=== PATIENT | male | born 1970 | race Caucasian/White ===

== ENCOUNTER 2022-01-30 16:08 | Outpatient (CLI) | payer OTHER, SELFPAY ==
--- NOTE | ~2022-01-30 | CT_ITS ---
EXAMINATION: CT abdomen pelvis wo/w con DATE: 01/30/2022 17:10 INDICATION: Gross hematuria. TECHNIQUE: Computed tomography (CT) of the abdomen and pelvis was performed without and with 130 cc O mnipaque 350 intravenous contrast. The dose-length product was 2060.18 mGy-cm. Automated exposure con trol and iterative reconstruction technique were employed. COMPARISON: CT dated 04/15/2007 FINDINGS: Lung bases are unremarkable. Heart size normal. No significant pleural or pericardial effus ion.There are mildly increased number of mesenteric lymph nodes with hazy stranding of the mesenteric fat. Nonobstructive bowel gas pattern. No retroperitoneal lymphadenopathy. No renal stones or hydron ephrosis. Fatty infiltration of the liver. There are cholecystectomy clips. The spleen, pancreas, adrenal gland s and kidneys are unremarkable. There is small accessory splenule medial to the spleen. Ureters are n ormal in course and caliber mildly enlarged prostate gland. Mild lumbar spondylosis. No acute osseous abnormality. IMPRESSION: 1. No findings to explain hematuria. 2: Mild mesenteric lymphadenopathy with stranding of the adjacent mesenteric fat, which can be seen w ith panniculitis. Reviewed, dictated and finalized at location B. IMPRESSION: 1. No findings to explain hematuria. 2: Mild mesenteric lymphadenopathy with stranding of the adjacent mesenteric fa t, which can be seen with panniculitis.
== END 2022-01-30 16:09 | disposition home or self-care (01) ==
PROVIDERS: PCP Family Medicine; Visit Provider Family Medicine
DX: R31.0 Gross hematuria (principal); M47.816 Spondylosis without myelopathy or radiculopathy, lumbar region; R59.1 Generalized enlarged lymph nodes
CPT/HCPCS: 74178; Q9967

== ENCOUNTER 2025-03-12 02:20 | Day surgery (SDC) | payer OTHER, SELFPAY ==
[2025-03-03 15:32] VITALS: BMI 32.7
--- OUTSIDE RECORDS SUMMARY | 2025-03-12 02:24 | XMS_ITS | Clinical Summary ---
Author Organization [facility] Address [address] [place] [address] Care Team Providers Care Delivery Merchandiser Name Role Phone Yoav Ospina MD Primary Care Provider [phone] Allergies No known active allergies Medications omeprazole (PriLOSEC) 20 mg capsule Take 20 mg by mouth daily Active methylPREDNISol one (Medrol, Martín,) 4 mg DosepackIndicat ions:Right carpal tunnel syndrome Take as directed on package 1 packet 04/10/2021 Active Active Problems Problem Noted Date Diagnosed Date Right carpal tunnel syndrome 01/20/2020 Surgical History Surgery Date Site/Laterality Comments CARPAL TUNNEL RELEASE 03/28/2021 Right rt CTR Social History Tobacco Use Types Packs/Day Years Used Date Smoking Tobacco: Every Day Smokeless Tobacco: Current Alcohol Use Standard Drinks/Week Comments Yes 0 (1 standard drink = 0.6 oz pur e alcohol) social Personal Safety Answer Date Recorded Getting School Help Needed Not on file 01/17 Sex and Gender Information Value Date Recorded Sex Assigned at Not on file 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 Gender Identity Not on file Sexual Orientation Not on file Obstetrics History Last Filed Vital Signs Vital Sign Reading Time Taken Comments Blood Pressure 118/86 03/28/2021 6:15 AM CDT Pulse 66 03/28/2021 6:15 AM CDT Temperature 36.8 C (98.2 F) 03/28/2021 6:15 AM CDT Respiratory Rate - - Oxygen Saturation 96% 03/28/2021 6:15 AM CDT Inhaled Oxygen Concentration - - Weight 92.6 kg (204 lb 3.2 oz) 03/28/2021 6:15 A M CDT Height 170.2 cm (5' 7 ) 03/28/2021 6:15 AM CDT Body Mass Index 31.98 03/28/2021 6:15 AM CDT Plan of Treatment Not on file Insurance [employer] OPEN ACCESS [employer] ACC[employer] Care Teams Delivery Merchandiser Relationship Specialty Start Date End Date Yoav Ospina MD [address] [place] [address] [place] [id number] PCP - General Family Medicine 12/25/19
--- OUTSIDE RECORDS SUMMARY | 2025-03-12 02:24 | XMS_ITS | Referral Summary ---
Author Organization [facility] Address [address] [place] [address] Care Team Providers Care Leather Softener Name Role Phone Yoav Ospina MD Primary Care Provider [phone] Allergies No known active allergies Medications omeprazole (PriLOSEC) 20 mg capsule Take 20 mg by mouth daily Active methylPREDNISol one (Medrol, Martín,) 4 mg DosepackIndicat ions:Right carpal tunnel syndrome Take as directed on package 1 packet 04/10/2021 Active Active Problems Problem Noted Date Diagnosed Date Right carpal tunnel syndrome 01/20/2020 Social History Tobacco Use Types Packs/Day Years [...] on file 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
[2025-03-12 10:49] VITALS: BP 128/88; PULSE 71; RESP 18; TEMP 36.8; O2SAT 97; BMI 31.2
[2025-03-12] MEDS: LACTATED RINGERS 1,000 ML 150 ML IV CONT (10:52)
--- NOTE | 2025-03-12 11:15 | WPDANESEPPF ---
Anes - Initial Pre Proc Eval Procedure: Operation Date: 03/12/25 13:00 Proposed Procedures p Screening Colonoscopy - Ousmane Marie MD Date/Time: 03/12/25 11:15 Surgeon: Ousmane Marie MD Pre Op Diagnosis: screening Patient Data Age: 54 Gender: M Height: 1.73 m Weight: 93.3 kg Last Vital Signs Temp 98.3 F 03/12/25 10:49 Pulse 71 03/12/25 10:49 Resp 18 03/12/25 10:49 BP 128/88 03/12/25 10:49 Pulse Ox 97 03/12/25 10:49 O2 Del Method Room Air 03/12/25 10:49 Allergies Allergy/AdvReac Type Severity Reaction Status Date / Time No Known Allergies Allergy Mild Verified 03/12/25 10:48 Home Medications ?Medication ?Instructions ?Recorded ?Confirmed ?Type omeprazole 20 mg capsule,delayed 20 mg PO DAILY #30 caps 03/25/23 03/12/25 Rx release lisinopril 20 mg tablet 20 mg PO DAILY #90 tabs 09/28/24 03/12/25 Rx Patient hx anesthesia problems: none Family hx anesthesia problems: none Results Review: All pre-operative results and documents have been reviewed as part of the pre-operative evaluation. [facility] Past Medical History Medical History Allergic rhinitis GERD (gastroesophageal reflux disease) Hypertension Surgical History Surgical History History of cholecystectomy History of local excision of skin lesion fulgurtion of condylomata 12/1998 Family History Family History Father Acute myocardial infarction Heart disease Hypertension Mother Acute myocardial infarction Heart disease Hypertension Grandparent Diabetes mellitus Social History Social History Smoking packs per day: 0.5 Smoking cigarettes per day: 10.0 Years smoked: 35 Smoking pack-years: 17.50 Smoking status: Current every day smoker Tobacco type: cigarettes Alcohol intake: current Drinks per week: 2 Alcohol use details: Occasionally Substance use: never Substance use type: does not use Do You Feel Safe in your Home?: Yes Lack of Transportation: No Lack of Food: Never True Current Housing: I Have Housing Concerned About Future Housing: No Difficulty Paying Gas/Electric Bills: No Difficulty Paying for Meds: No Currently Unemployed: No Education: High School Diploma/GED Difficulty w/ Childcare or Family Care: No Living arrangements: with family Occupation/Education: occupation Gender identity (if verbalized by the patient): Male Sexual Orientation (if Verbalized by the Patient): Straight or Heterosexual Spiritual care concerns: No Anes - Eval Final PreProcedure Day of Procedure 03/12/25 11:15 Patient weight: obese Heart: regular rate and rhythm Lungs: clear to auscultation Airway: Mallampati scale class II Neurological: alert and oriented Last oral intake: >/= 8 hours ASA classification: III Emergent: no Anesthetic plan: proceed Anesthesia type and monitoring: general GIVS and standard monitoring Results Review: All pre-operative results and documents have been reviewed as part of the pre-operative evaluation. Informed Consent: The patient's anesthetic plan and its attendant risks and benefits were discussed with the patient/family/POA. Questions were solicited and answers provided to the satisfaction of the patient/family/POA.
--- NOTE | 2025-03-12 11:22 | PM.HPGS ---
History of Present Illness History of Present Illness Consent: Risks, benefits, and alternatives have been discussed and questions answered. Patient agrees to proceed with procedure. Chief complaint: screening Narrative: Chlee Pena is a 54 year old male here for first screening colonoscopy Review of Systems Review of Systems: All systems reviewed & are unremarkable except as noted in HPI and below PMFSH Past Medical History Medical History (Updated 03/12/25 @ 11:23 by Ousmane Marie MD) Colon cancer screening Hypertension GERD (gastroesophageal reflux disease) Allergic rhinitis Surgical History Surgical History History of local excision of skin lesion fulgurtion of condylomata 12/1998 History of cholecystectomy Family History Family History Father Acute myocardial infarction Heart disease Hypertension Mother Acute myocardial infarction Heart disease Hypertension Grandparent Diabetes mellitus Social History Social History Smoking packs per day: 0.5 Smoking cigarettes per day: 10.0 Years smoked: 35 Smoking pack-years: 17.50 Smoking status: Current every day smoker Tobacco type: cigarettes Alcohol intake: current Drinks per week: 2 Alcohol use details: Occasionally Substance use: never Substance use type: does not use Do You Feel Safe in your Home?: Yes Lack of Transportation: No Lack of Food: Never True Current Housing: I Have Housing Concerned About Future Housing: No Difficulty Paying Gas/Electric Bills: No Difficulty Paying for Meds: No Currently Unemployed: No Education: High School Diploma/GED Difficulty w/ Childcare or Family Care: No Living arrangements: with family Occupation/Education: occupation Gender identity (if verbalized by the patient): Male Sexual Orientation (if Verbalized by the Patient): Straight or Heterosexual Spiritual care concerns: No Meds Home Medications and Allergies Home Medications ?Medication ?Instructions ?Recorded ?Confirmed ?Type omeprazole 20 mg capsule,delayed 20 mg PO DAILY #30 caps 03/25/23 03/12/25 Rx release lisinopril 20 mg tablet 20 mg PO DAILY #90 tabs 09/28/24 03/12/25 Rx Allergies Allergy/AdvReac Type Severity Reaction Status Date / Time No Known Allergies Allergy Mild Verified 03/12/25 10:48 Vital Signs Vital Signs - 24 hr 03/12/25 10:49 Temperature 98.3 F Pulse Rate 71 Respiratory Rate 18 Blood Pressure 128/88 Pulse Oximetry 97 Oxygen Delivery Room Air Exam Const: General: comfortable and no acute distress HENMT: Face/Nose/Sinus: Normal nares present Eyes: General: appearance normal, both eyes and all related structures Neck: Neck: no JVD Resp: Auscultation: clear to auscultation bilaterally Cardio: Rate: regular rate Rhythm: regular rhythm GI: Inspection: non-distended GI Palp: Yes Soft to palpation Skin: General skin exam: normal color Neuro: General: gait normal Speech: normal speech Extrem: General: normal to inspection Psych: Mental Status: mental status grossly normal Assessment and Plan Assessment and plan (1) Colon cancer screening: Code(s): Z12.11 - Encounter for screening for malignant neoplasm of colon Status: Acute Assessment and Plan: colonoscopy
[2025-03-12 11:38] VITALS: BP 117/77; PULSE 80; RESP 18; O2SAT 97
[2025-03-12 11:48] VITALS: BP 106/74; PULSE 72; RESP 20; O2SAT 94
[2025-03-12 11:58] VITALS: BP 121/89; PULSE 74; RESP 22; O2SAT 99
== END 2025-03-12 12:10 | disposition home or self-care (01) ==
PROVIDERS: PCP Family Medicine; Referring Provider Physician Assistant; Visit Provider Internal Medicine Gastroenterology
PROC: 0DJD8ZZ Inspection of Lower Intestinal Tract, Via Natural or Artificial Opening Endoscopic (ICD-10-PCS; CPT 45378; principal; 2025-03-12 13:00)
DX: Z12.11 Encounter for screening for malignant neoplasm of colon (principal); D12.3 Benign neoplasm of transverse colon; K57.30 Diverticulosis of large intestine without perforation or abscess without bleeding; I10 Essential (primary) hypertension; K21.9 Gastro-esophageal reflux disease without esophagitis; F17.210 Nicotine dependence, cigarettes, uncomplicated; E66.9 Obesity, unspecified; Z68.31 Body mass index [BMI] 31.0-31.9, adult; Z98.890 Other specified postprocedural states; Z90.49 Acquired absence of other specified parts of digestive tract; Z82.49 Family history of ischemic heart disease and other diseases of the circulatory system
CPT/HCPCS: 45385; 88305; J2704; J7120

== ENCOUNTER 2025-10-13 01:39 | Day surgery (SDC) | payer OTHER, SELFPAY ==
[2025-10-12 13:09] VITALS: BMI 33.5
--- OUTSIDE RECORDS SUMMARY | 2025-10-13 01:42 | XMS_ITS | Clinical Summary ---
Author Organization [facility] Address [address] [place] [address] Care Team Providers Care Director Outcomes Name Role Phone Unavailable Primary Care Provider Unavailabl e Source Comments [facility],non-owned Affiliates and Associated Physician Practices is amultiple site organization consisting of ambulatory clinics and hospital sitesin [place], [place], [place] and [place]. This disclosure is being madepursuant to the Care Everywhere program and may not contain all information available regarding this patient. Last updated 18.[facility] Allergies No known active allergies Medications * Be aware that medications may not be up to date on this document. Alwaysverify current medications with the patient. 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 Gender Identity Not on file Sexual Orientation Not on file Last Filed Vital Signs Vital Sign Reading Time Taken Comments Blood Pressure 122/78 12/14/2018 10:03 AM QUILL CLEANING MACHINE OPERATOR Pulse 77 12/14/2018 10:03 AM QUILL CLEANING MACHINE OPERATOR Temperature 36.8 C (98.3 F) 12/14/2018 10:03 AM QUILL CLEANING MACHINE OPERATOR Respiratory Rate 15 12/14/2018 10:03 AM QUILL CLEANING MACHINE OPERATOR Oxygen Saturation 98% 12/14/2018 10:03 AM QUILL CLEANING MACHINE OPERATOR Inhaled Oxygen Concentration - - Weight 97.5 kg (215 lb) 12/14/2018 10:03 AM QUILL CLEANING MACHINE OPERATOR Height 172.7 cm (5' 8) 12/14/2018 10:03 AM QUILL CLEANING MACHINE OPERATOR Body Mass Index 32.69 12/14/2018 10:03 AM QUILL CLEANING MACHINE OPERATOR Plan of Treatment Health Maintenance Due Date Last Done Comments COLOGUARD (AGES 45-75) - COL ON CA SCREENING 1972 COLON MONITORING 1972 COLONOSCOPY - COLON CA SCREENING 1972 CT COLONOGRAPHY - COLON CA SCREENING 1972 Colorectal Cancer Screening 1972 FIT - COLON CA SCREENING 1972 FLEX SIG - COLON CA SCREENING 1972 LIPID TESTING 1972 HIV SCREENING 1987 HEPATITIS C SCREENING 07/28/1990 DTAP/TDAP/TD VACCINES (1 - Tdap) 1991 HEPATITIS B VACCINE (1 of 3 - 19+ 3-dose series) 1991 PNEUMOCOCCAL VACCINE 50+ (1 of 2 - PCV) 1991 SCREENING FOR DIABETES 12/14/2018 ZOSTER VACCINE (1 of 2) 2022 DEPRESSION SCREENING 11/18/2024 COVID-19 VACCINE (1 - 2024-2 6 season) 2025 INFLUENZA VACCINE (#1) 2025 HIB VACCINE Aged Out No longer eligi ble based on patient's age to complete this topic HPV VACCINE Aged Out No longer eligi ble based on patient's age to complete this topic MENINGOCOCCAL (Group B) VACC INE SHARED DECISION-MAKING Aged Out No longer eligibl e based on patient's age to complete this topic MENINGOCOCCAL GROUPS A/C/Y/W VACCINE Aged Out No longer eligible b ased on patient's age to complete this topic Insurance [facility] SELF PAY NO INSURANCE Member Subscriber Plan / Payer (Ef fective for All Dates) Name:Bk Cantor Member ID:Not on file Relation to Subscriber:Not on file Name:BK CANTOR Subscriber ID:Not on file (Home) Address: [address] [place] [address] [place] [address] Payer ID:Not on file Group ID:Not on file Type:Self Pay Address: [facility]
--- OUTSIDE RECORDS SUMMARY | 2025-10-13 01:42 | XMS_ITS | Clinical Summary ---
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
--- OUTSIDE RECORDS SUMMARY | 2025-10-13 01:42 | XMS_ITS ---
Author Organization Unknown ENCOUNTERS Encounter Performer Location Date Diagnosis Diagnosis Status Outpatient [address] [address] [id number] COLT *Note: Encounters from your own facility or health system may be excluded. Allergies, Adverse Reactions, Alerts Allergen Type Severity Identification Date Medications Name Date Quantity Days Supplied GPI Number
[2025-10-13 08:24] VITALS: BP 121/73; PULSE 77; RESP 18; TEMP 36.4; O2SAT 97
[2025-10-13] MEDS: LACTATED RINGERS 1,000 ML 150 ML IV CONT (08:31)
--- NOTE | 2025-10-13 08:47 | WPDANESEPPF ---
Anes - Initial Pre Proc Eval Procedure: Operation Date: 10/13/25 09:30 Proposed Procedures p Esophagogastroduodenoscopy - Ousmane Marie MD Date/Time: 10/13/25 08:47 Surgeon: Ousmane Marie MD Pre Op Diagnosis: Dysphagia, unspecified Patient Data Age: 55 Gender: M Height: 1.73 m Weight: 95.9 kg Last Vital Signs Temp 36.4 C L 10/13/25 08:24 Pulse 77 10/13/25 08:24 Resp 18 10/13/25 08:24 BP 121/73 10/13/25 08:24 Pulse Ox 97 10/13/25 08:24 O2 Del Method Room Air 10/13/25 08:24 Allergies Allergy/AdvReac Type Severity Reaction Status Date / Time No Known Allergies Allergy Mild Verified 10/13/25 08:22 Home Medications ?Medication ?Instructions ?Recorded ?Confirmed ?Type omeprazole 20 mg capsule,delayed 20 mg PO DAILY #30 caps 03/25/23 10/13/25 Rx release lisinopril 20 mg tablet 20 mg PO DAILY #90 tabs 10/01/25 10/13/25 Rx Patient hx anesthesia problems: none Family hx anesthesia problems: none Results Review: All pre-operative results and documents have been reviewed as part of the pre-operative evaluation. [facility] Past Medical History Medical History Personal history of adenomatous and serrated colon polyps Colon cancer screening Hypertension GERD (gastroesophageal reflux disease) Allergic rhinitis Surgical History Surgical History History of local excision of skin lesion fulgurtion of condylomata 12/1998 History of cholecystectomy Family History Family History Father Acute myocardial infarction Heart disease Hypertension Mother Acute myocardial infarction Heart disease Hypertension Grandparent Diabetes mellitus Social History Social History (Updated 10/01/25 @ 16:08 by Alpa Braga MA) Smoking packs per day: 1.5 Smoking cigarettes per day: 30.0 Years smoked: 35 Smoking pack-years: 52.50 Smoking status: Heavy tobacco smoker Tobacco type: cigarettes Alcohol intake: never Alcohol use details: About 1 mixed drink once every 2 months Substance use: never Substance use type: does not use Do You Feel Safe in your Home?: Yes Lack of Transportation: No Lack of Food: Never True Current Housing: I Have Housing Concerned About Future Housing: No Difficulty Paying Gas/Electric Bills: No Difficulty Paying for Meds: No Currently Unemployed: No Education: High School Diploma/GED Difficulty w/ Childcare or Family Care: No Living arrangements: with family Occupation/Education: occupation Gender identity (if verbalized by the patient): Male Sexual Orientation (if Verbalized by the Patient): Straight or Heterosexual Spiritual care concerns: No Anes - Eval Final PreProcedure Day of Procedure 10/13/25 08:47 Patient weight: obese Heart: regular rate and rhythm Lungs: clear to auscultation Airway: Mallampati scale class II Neurological: alert and oriented Last oral intake: >/= 8 hours ASA classification: III Emergent: no Anesthetic plan: proceed Anesthesia type and monitoring: general GIVS and standard monitoring Results Review: All pre-operative results and documents have been reviewed as part of the pre-operative evaluation. Informed Consent: The patient's anesthetic plan and its attendant risks and benefits were discussed with the patient/family/POA. Questions were solicited and answers provided to the satisfaction of the patient/family/POA.
--- NOTE | 2025-10-13 08:50 | PM.HPGS ---
History of Present Illness History of Present Illness Consent: Risks, benefits, and alternatives have been discussed and questions answered. Patient agrees to proceed with procedure. Chief complaint: Dysphagia, unspecified Narrative: Chele Pena is a 55 year old male here for first EGD, h/o gerd on omeprazole Review of Systems Review of Systems: All systems reviewed & are unremarkable except as noted in HPI and below PMFSH Past Medical History Medical History Personal history of adenomatous and serrated colon polyps Colon cancer screening Hypertension GERD (gastroesophageal reflux disease) Allergic rhinitis Surgical History Surgical History History of local excision of skin lesion fulgurtion of condylomata 12/1998 History of cholecystectomy Family History Family History Father Acute myocardial infarction Heart disease Hypertension Mother Acute myocardial infarction Heart disease Hypertension Grandparent Diabetes mellitus Social History Social History (Updated 10/01/25 @ 16:08 by Alpa Braga MA) Smoking packs per day: 1.5 Smoking cigarettes per day: 30.0 Years smoked: 35 Smoking pack-years: 52.50 Smoking status: Heavy tobacco smoker Tobacco type: cigarettes Alcohol intake: never Alcohol use details: About 1 mixed drink once every 2 months Substance use: never Substance use type: does not use Do You Feel Safe in your Home?: Yes Lack of Transportation: No Lack of Food: Never True Current Housing: I Have Housing Concerned About Future Housing: No Difficulty Paying Gas/Electric Bills: No Difficulty Paying for Meds: No Currently Unemployed: No Education: High School Diploma/GED Difficulty w/ Childcare or Family Care: No Living arrangements: with family Occupation/Education: occupation Gender identity (if verbalized by the patient): Male Sexual Orientation (if Verbalized by the Patient): Straight or Heterosexual Spiritual care concerns: No Meds Home Medications and Allergies Home Medications ?Medication ?Instructions ?Recorded ?Confirmed ?Type omeprazole 20 mg capsule,delayed 20 mg PO DAILY #30 caps 03/25/23 10/13/25 Rx release lisinopril 20 mg tablet 20 mg PO DAILY #90 tabs 10/01/25 10/13/25 Rx Allergies Allergy/AdvReac Type Severity Reaction Status Date / Time No Known Allergies Allergy Mild Verified 10/13/25 08:22 Vital Signs Vital Signs - 24 hr 10/13/25 08:24 Temperature 97.5 F L Pulse Rate 77 Respiratory Rate 18 Blood Pressure 121/73 Pulse Oximetry 97 Oxygen Delivery Room Air Exam Const: General: comfortable and no acute distress HENMT: Face/Nose/Sinus: Normal nares present Eyes: General: appearance normal, both eyes and all related structures Resp: Auscultation: clear to auscultation bilaterally Cardio: Rate: regular rate Rhythm: regular rhythm GI: Inspection: non-distended GI Palp: Yes Soft to palpation Skin: General skin exam: normal color Extrem: General: normal to inspection Psych: Mental Status: mental status grossly normal Assessment and Plan Assessment and plan (1) GERD (gastroesophageal reflux disease): Code(s): K21.9 - Gastro-esophageal reflux disease without esophagitis Status: Acute Assessment and Plan: egd with bx on omeprazole otc
--- NOTE | 2025-10-13 08:55 | S_PTH ---
PATIENT: Chele Pena LOC: [facility]#:[id number] AGE/SX: 55/M ROOM: RE10/13/[address]: Ousmane Marie MD : 1970 BED: DIS: 10/13/2025 SPEC #: [id number] RECD: 10/13/25 09:57 STATUS: SANAM REDominic #: [id number] VIRAL: 10/13/25 08:[address]: Ousmane Marie DEPT: [facility] Surgical RECD BY: Juliana Holloway ENTERED: 10/13/25 09:58 SP TYPE: Surgical OTHR DR: Yoav Ospina MD Tissues: A - Esophageal Biopsy B - Gastric Biopsy Procedures: Hematoxylin and Eosin Stain Gross and Microscopic Level 4
[2025-10-13 08:58] VITALS: BP 122/85; PULSE 83; RESP 21; O2SAT 97
[2025-10-13 09:08] VITALS: BP 112/77; PULSE 82; RESP 24; O2SAT 96
[2025-10-13 09:18] VITALS: BP 115/77; PULSE 73; RESP 19; O2SAT 97
== END 2025-10-13 09:26 | disposition home or self-care (01) ==
PROVIDERS: PCP Family Medicine; Referring Provider Family Medicine; Visit Provider Internal Medicine Gastroenterology
PROC: 0DJ08ZZ Inspection of Upper Intestinal Tract, Via Natural or Artificial Opening Endoscopic (ICD-10-PCS; CPT 43239; principal; 2025-10-13 09:30)
DX: K21.00 Gastro-esophageal reflux disease with esophagitis, without bleeding (principal); K22.2 Esophageal obstruction; I10 Essential (primary) hypertension; F17.210 Nicotine dependence, cigarettes, uncomplicated; E66.9 Obesity, unspecified; Z68.32 Body mass index [BMI] 32.0-32.9, adult; Z98.890 Other specified postprocedural states; Z90.49 Acquired absence of other specified parts of digestive tract; Z86.0100 Personal history of colon polyps, unspecified; Z82.49 Family history of ischemic heart disease and other diseases of the circulatory system
CPT/HCPCS: 43239; 43450; 88305; J7120